=== PATIENT | female | born 1985 | race Caucasian/White ===

== ENCOUNTER → 2023-08-16 13:55 | Outpatient (REF) | payer OTHER, SELFPAY | LOC: HWRAD 13:55 | PROVIDERS: ATTENDING PHYSICIAN Nurse Practitioner Family; FAMILY PHYSICIAN Internal Medicine | DX: N93.9 Abnormal uterine and vaginal bleeding, unspecified (principal) | CPT/HCPCS: 76830; 76856 ==

== ENCOUNTER → 2024-07-27 08:05 | Outpatient (REF) | payer BC, SELFPAY | LOC: WDC 08:05 | PROVIDERS: ATTENDING PHYSICIAN Nurse Practitioner Family; FAMILY PHYSICIAN Nurse Practitioner | DX: Z12.31 Encounter for screening mammogram for malignant neoplasm of breast (principal) | CPT/HCPCS: 77063; 77067 ==

== ENCOUNTER → 2024-08-22 14:41 | Outpatient (REF) | payer BC, SELFPAY | LOC: HWRAD 14:41 | PROVIDERS: ATTENDING PHYSICIAN Nurse Practitioner Family | DX: M25.551 Pain in right hip (principal) | CPT/HCPCS: 73502 ==